=== PATIENT | male | born 1975 | race American Indian/Alaskan Native ===

== ENCOUNTER 2019-04-16 10:13 | Outpatient (CLI) | payer MEDICARE ==
--- NOTE | 2019-04-16 12:01 | XRay Report ---
CHEST 2 VIEWS INDICATION: COPD for one year. shortness of breath COMPARISON: 04/25/17 FINDINGS: Support devices: None. Heart: Within normal limits. Lungs/pleura: No acute air space or interstitial disease. No pneumothorax. Additional findings: None. IMPRESSION: 1. No acute findings. Signer Name: Scott Cadena Jr, MD Signed: 04/16/2019 11:56 AM Workstation Name: [id number]
--- NOTE | 2019-04-16 12:47 | Fluoroscopy Report ---
Upper GI with air contrast HISTORY: Gastroesophageal reflux disease for years, hoarseness, vocal cord polyps. Technique: Single and double contrast barium technique utilized to evaluate the esophagus, stomach, and duodenal C-loop. Findings: To begin the exam, swallowing was evaluated in the lateral position under direct fluorosco py. Swallowing was normal. No mucosal irregularity, mass, mass effect, or critical stenosis. There were no abnormal tertiary c ontractions as seen with dysmotility. No evidence for hiatal hernia. A few episodes of gastroesophage al reflux to the mid to upper esophagus was witnessed during this exam. Gastric motility appeared dec reased which could represent gastroparesis. Impression: Mild gastroparesis is suspected. Occasional episodes of gastroesophageal reflux were wit nessed during this exam. No mucosal defect or abnormal dilatation. Fluoroscopic time: 2.4 minutes Number of fluoroscopic images: 13 Signer Name: Scott Cadena Jr, MD Signed: 04/16/2019 12:42 PM Workstation Name: [id number]
== END 2019-04-16 10:14 | disposition home or self-care (01) ==
LOC: FLUORO 10:13
PROVIDERS: ATTEND Internal Medicine
DX: K21.9 Gastro-esophageal reflux disease without esophagitis (principal); J44.9 Chronic obstructive pulmonary disease, unspecified; I11.0 Hypertensive heart disease with heart failure; I50.9 Heart failure, unspecified; E78.00 Pure hypercholesterolemia, unspecified; E11.9 Type 2 diabetes mellitus without complications
CPT/HCPCS: 71046; 74247